=== PATIENT | female | born 1955 | race Two or more races ===

== ENCOUNTER 2024-07-07 13:12 | Outpatient (AMB) | payer OTHER, SELFPAY ==
[2024-07-07 13:29] VITALS: BP 109/70; PULSE 64; RESP 18; TEMP 36.5; O2SAT 97; BMI 49.8
--- NOTE | 2024-07-07 13:29 | ORTHONT_ITS ---
Vital signs 07/07/24 13:29 Height 1.57 m Height Method Stated Weight 123.604 kg Weight Measurement Method Standing Scale BMI 49.8 BP 109/70 Blood Pressure Source Automatic Cuff Blood Pressure Location Left Lower Arm Position Sitting Respiration 18 Pulse 64 Pulse Source Monitor Temp 97.7 F Temp Source Temporal Artery Scan Pulse Oximetry (%) 97 Oxygen Delivery Method Room Air Med/Allergies Allergies & Medications Allergies No Known Allergies Allergy (Verified 07/07/24 13:31) Medication Reconciliation acetaminophen 325 mg tablet (Tylenol) 325 mg PO QID PRN 07/07/24 [History Confirmed 07/07/24] apixaban 2.5 mg tablet (Eliquis) 2.5 mg PO BID 07/07/24 [History Confirmed 07/07/24] Exam Exam Patient is in no acute distress and is cooperative with the examination today. Breathing is nonlabored. In no respiratory distress. Bilateral extremities were evaluated and demonstrates sensation intact to light touch. Palpable pedal pulses are present. No significant edema is present. Bilateral hips were examined. The patient has no pain with log roll of the hips. Internal rotation to 30 degrees and external rotation to 30 degrees is painless. Negative FADIR. The left knee was examined. The left knee is in varus alignment. Range of motion from 0-115 degrees. Knee is stable to varus and valgus as well as AP translation with <5mm. Patient has a negative McMurrays. There is no pain with patellofemoral compression and no crepitus noted. The knee is tender to palpation medially. The right knee was also examined. The right knee is in varus alignment. Range of motion from 0-120 degrees. Knee is stable to varus and valgus as well as AP translation with <5mm. Patient has a negative McMurrays. There is no pain with patellofemoral compression and no crepitus noted. The knee is tender to palpation medially. No x-rays are available to review Assessment and Plan Problem List (1) Arthritis of both knees: Status: Acute Plan: Patient is a pleasant 60-year-old female with bilateral knee pain and bilateral knee arthritis of significant severity. We will need to get weightbearing x- rays as it has been quite a while. We discussed that she is not a candidate for operative management given her morbid obesity as her BMI is currently 50. She has a goal weight loss of 50 pounds prior to surgery. We discussed that we give her injections and continued conservative treatment for now Advanced Care Planning Discussion Advance care planning discussed with:: patient Office Procedures GNS Level of Care Nursing/Assessment Patient Status: Initial/New Patient Nursing Assessment/Reassesment: Medication Reconciliation, Update PMH in EMR and Vital Signs Coordination of Care: Complex Care and Chronic Disease 1-5, Education Complex Pt/Fam, Consent,records obtained, informed consent, 1 Ins Authorization, Lab and Imaging orders, Results/Orders obtained and Staff clarify orders Special Needs: Language special needs New Patient Charge New Patient Point Assignment: 1124 New Patient Point 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 4 ([id number]) MA Intake Visit Data Collection New Patient or Established: New Patient (never been to [facility]) Reason for Visit:: RIGHT KNEE PAIN Seen by Clinical Staff ONLY (RN/MA): No Dismantler Required: Yes PCP or OBGYN visit in last 3 months: Yes Hx Now: No Do You Feel Safe at Home: Yes Authorities Contacted: N/A Questionairres Past Medical History Past Medical History Have you ever been diagnosed with any of the following: Subjective Visit Visit for: new patient and knee (BILATERAL) Immunization / Flu Flu Vaccine in the Last 12 Months: No Flu Vaccine Exclusion Criteria: No Exclusion Criteria History of Present Illness Chief complaint: bilateral knee pain Patient is a pleasant 68-year-old female with bilateral knee pain and bilateral knee arthritis. She was told she was [id number]. She has no x-rays with her today. She has tried multiple injections in the past and they are not working for a long time. She reports they only work for 2 weeks Pain Pain level (0-10): 7 Pain duration: WITH MOVEMENT Pain location: inside (medial), outside (lateral), anterior and posterior Pain quality: sharp, aching and burning Pain timing: night, increases with activity and stairs Associated signs & symptoms: weakness and stiffness Ambulatory data Ambulatory device: none Treatments Number of previous injections: 10 Improvement with previous injections: No Improvement with PT: No Improvement with NSAIDS: no Review of Systems Review of Systems: All systems negative unless otherwise noted in HPI.
== END 2024-07-07 13:46 | disposition home or self-care (01) ==
PROVIDERS: PCP Family Medicine; Referring Provider Family Medicine; Supervising Provider Orthopaedic Surgery Adult Reconstructive Orthopaedic Surgery; Visit Provider Orthopaedic Surgery Adult Reconstructive Orthopaedic Surgery
DX: M17.0 Bilateral primary osteoarthritis of knee (principal); M25.562 Pain in left knee; M25.561 Pain in right knee; E66.01 Morbid (severe) obesity due to excess calories; Z68.42 Body mass index [BMI] 45.0-49.9, adult
CPT/HCPCS: 99204; G0463

== ENCOUNTER → 2024-07-07 | Outpatient (CLI) | payer OTHER, SELFPAY ==
--- NOTE | 2024-07-07 14:28 | XR_ITS ---
Examination: Knee bilateral, 8 views Technique: Knee AP, lateral, oblique axial H knee total 8 views Date and time of exam: July 05, 2024 1450 hrs. Indications: Bilateral knee pain beginning 10 years ago. Findings: Right knee advanced tricompartment osteoarthritis, severe narrowing medial joint space [id number] Moderate to advanced tricompartment osteoarthritis left knee, most severe narrowing medial patellofemoral joints No fracture or dislocation as above Impression: Significant bilateral osteoarthritis as above
== END | disposition home or self-care (01) ==
PROVIDERS: PCP Family Medicine; Referring Provider Orthopaedic Surgery Adult Reconstructive Orthopaedic Surgery; Visit Provider Orthopaedic Surgery Adult Reconstructive Orthopaedic Surgery
DX: M17.0 Bilateral primary osteoarthritis of knee (principal)
CPT/HCPCS: 73562